=== PATIENT | male | born 1965 | race Caucasian/White ===

== ENCOUNTER 2020-12-20 12:08 | Emergency (ER) | payer OTHER, SELFPAY ==
--- NOTE | 2020-12-20 12:09 | ED.GENADULT ---
HPI - General Adult General Chief complaint: Back Pain/Injury Stated complaint: BACK INJURY Time Seen by Provider: 12/20/20 12:09 Source: patient Mode of arrival: ambulatory Limitations: no limitations History of Present Illness HPI narrative: 55-year-old male patient presents to the [facility] with complaints of left low back strain. Patient states he has been out of town for the past 2 days and states that he drove to [place] with a stick shift car using the left leg to shift. Patient states when he was unloading some stuff from his car today he felt a strain to the left lower back and since then has been having pain. Patient states he either took Tylenol or ibuprofen today for the pain but is not sure which one he took. Patient states it hurts worse mostly when he is going to stand up and walk on the left leg. Patient denies any numbness or tingling. Denies any loss of bowel or bladder control. Patient denies any urinary symptoms or pain with urination. Related Data Home Medications Medication Instructions Recorded Confirmed alprazolam 12/20/20 Allergies Allergy/AdvReac Type Severity Reaction Status Date / Time No Known Allergies Allergy Unverified 03/31/19 12:00 Review of Systems Review of Systems: Narrative: CONSTITUTIONAL: Denies fever, chills, or sweats. EYES: Denies visual changes, redness, or discharge. ENT: Denies rhinorrhea, congestion, sore throat, or otalgia. CARDIOVASCULAR: Denies chest pain, palpitations, or edema. RESPIRATORY: Denies cough or dyspnea. GASTROINTESTINAL: Denies abdominal pain, nausea, vomiting, or diarrhea. GENITOURINARY: Denies dysuria or hematuria. SKIN: Denies rash or itching. MUSCULOSKELETAL: Positive left lower back pain, denies joint pain, or myalgia. NEUROLOGIC: Denies headache, numbness, or weakness. PSYCHIATRIC: Denies anxiety or depression. PMFSH Comments At the time of my signature I agree with nursing past medical history, surgical, social, and family history. There is no relevant family history pertinent to the presenting complaint. Exam Narrative: Exam Narrative: GENERAL: Well-appearing, well-nourished, and in no acute distress. HEAD: Normocephalic, atraumatic. EYES: PERRLA and EOMI. ENT: Nares clear, no rhinorrhea or epistaxis. Mucous membranes moist. NECK: Supple. No lymphadenopathy CHEST: Clear to auscultation. No respiratory distress. HEART: Regular rate and rhythm. No murmur heard. Normal peripheral pulses. ABDOMEN: Soft, nontender, nondistended, normal active bowel sounds. EXTREMITIES: Normal range of motion. No edema. BACK: Patient is able to ambulated without assistance. Pt is seated on the stretcher in no obvouis distress. Patient is holding the left lower back area. No surface trauma noted. muscle tenderness to Palpation of the left lower lumbar. No obvious spasm or mass. No step-offs or deformity noted to the cervical, thoracic or lumbar spine to firm Palpation at the midline. No CVA tenderness to percussion. No saddle anesthesia. ROM: able to stand erect. Pain to left lower back with flexion and when in standing position, no pain with extension, Lateral bending and rotation without limitation or complaint of pain. Patient states his pain is better when in a seated position. SKIN: Warm, dry, no rash. NEURO: No focal deficits. Alert and oriented x3. Course Vital Signs Vital signs: Vital Signs Temperature 35.8 C L 12/20/20 12:15 Pulse Rate 93 12/20/20 12:15 Respiratory Rate 22 H 12/20/20 12:15 Blood Pressure 155/81 H 12/20/20 12:15 Pulse Oximetry 100 12/20/20 12:15 Temperature 35.8 C L 12/20/20 12:17 Pulse Rate 93 12/20/20 12:17 Respiratory Rate 22 H 12/20/20 12:17 Blood Pressure 155/81 H 12/20/20 12:17 Pulse Oximetry 100 12/20/20 12:17 Vital signs reviewed The patient has been informed that they may have pre-hypertension or Hypertension based on a BP reading in the department. I recommend that the patient call
[2020-12-20 12:15] VITALS: BP 155/81; PULSE 93; RESP 22; TEMP 35.8; O2SAT 100
[2020-12-20 12:17] VITALS: BP 155/81; PULSE 93; RESP 22; TEMP 35.8; O2SAT 100
== END 2020-12-20 12:29 | disposition home or self-care (01) ==
PROVIDERS: Emergency Provider Nurse Practitioner Family; PCP Internal Medicine
DX: M54.42 Lumbago with sciatica, left side (principal)
CPT/HCPCS: 99213; G0463

== ENCOUNTER 2024-07-21 09:18 | Outpatient (CLI) | payer OTHER, SELFPAY ==
--- NOTE | ~2024-07-21 | MR_ITS ---
MRI of the cervical spine Clinical History: Spinal stenosis Technique: Axial T2-weighted and gradient images, and sagittal T1-weighted, T2-weighted, and STIR castro ges were acquired. Findings: There is straightening of the normal cervical lordosis, with 3 mm retrolisthesis of C6 over C7. No fracture seen. No suspicious bone marrow signal abnormality seen. At C2-C3, there is minimal disc bulge and minimal facet arthropathy. No central canal stenosis, cord compression, or neural foraminal narrowing. At C3-C4, there is mild to moderate degenerative disc narrowing. There is mild disc bulge with modera te facet arthropathy. There is no darrell canal stenosis or cord compression. There is mild left neural foraminal narrowing. Right neural foramen probably preserved. At C4-C5, there is advanced degenerative disc narrowing with mild disc osteophyte complex the right p aracentral region. There is mild bilateral neural foraminal narrowing. At C5-C6, there is advanced degenerative disc narrowing with minimal disc osteophyte complex. No omar k canal stenosis or cord compression. There is bilateral neural foraminal narrowing. At C6-C7, there is advanced degenerative disc narrowing. There is minimal disc bulge. No spinal canal stenosis or cord compression. There is mild bilateral neural foraminal narrowing. No abnormal signal seen in the spinal cord. Paravertebral soft tissues are unremarkable. Impression: Moderate degenerative spondylosis overall, as detailed above. 3 mm retrolisthesis of C6 over C7. Reviewed, dictated and finalized at [facility]. Impression: Moderate degenerative spondylosis overall, as detailed above. 3 mm retrolisthesis of C6 over C7.
== END 2024-07-21 09:19 | disposition home or self-care (01) ==
LOC: GOSHIMG 09:20
PROVIDERS: PCP Internal Medicine; Visit Provider Orthopaedic Surgery
DX: M48.02 Spinal stenosis, cervical region (principal); M43.12 Spondylolisthesis, cervical region
CPT/HCPCS: 72141